=== PATIENT | female | born 1955 | race Caucasian/White ===

== ENCOUNTER 2023-02-03 10:02 | Outpatient (CLI) | payer MEDICARE, OTHER, SELFPAY | END 2023-02-03 10:03 | disposition home or self-care (01) | LOC: INJ CL 10:05 | PROVIDERS: PCP Family Medicine; Visit Provider Family Medicine | DX: M51.26 Other intervertebral disc displacement, lumbar region (principal); M54.16 Radiculopathy, lumbar region | CPT/HCPCS: 64483; J1100; Q9966 ==

== ENCOUNTER 2023-06-09 07:12 | Outpatient (CLI) | payer MEDICARE, OTHER, SELFPAY | END 2023-06-09 07:13 | disposition home or self-care (01) | LOC: INJ CL 07:12 | PROVIDERS: PCP Family Medicine; Visit Provider Family Medicine | DX: M54.16 Radiculopathy, lumbar region (principal); M51.36 Other intervertebral disc degeneration, lumbar region | CPT/HCPCS: 62323; J0702; Q9966 ==